=== PATIENT | female | born 1960 ===

== ENCOUNTER 2018-05-02 10:36 | Outpatient (CLI) | payer BC ==
--- NOTE | 2018-05-02 15:53 | NM ---
NUCLEAR MEDICINE HEPATOBILIARY SCAN: 05/02/18 HISTORY: 57-year-old female with history of epigastric pain. Patient was injected with 5 millicuries technetium 99m Mebrofenin intravenously. There is prompt upta ke of the tracer by the liver with excretion into the biliary tree and gallbladder and emptying into the duodenum. At the one hour time interval, the patient was given 8 oz of Ensure. Gallbladder ejecti on fraction equals 44% which is within normal limits. IMPRESSION: Unremarkable nuclear medicine hepatobiliary scan and ejection fraction. POS: [facility]
== END 2018-05-02 10:37 | disposition home or self-care (01) ==
LOC: NM 10:36
PROVIDERS: ATTEND Internal Medicine Gastroenterology
DX: R10.13 Epigastric pain (principal)
CPT/HCPCS: 78227; A9537

== ENCOUNTER 2020-01-17 12:26 | Outpatient (CLI) | payer BC ==
--- NOTE | 2020-01-17 15:17 | CT ---
EXAM: CT ABDOMEN AND PELVIS HISTORY: Right lower quadrant pain. COMPARISON: 11/01/2017 Procedure: Multiple contiguous axial images were obtained and a CT of the abdomen and pelvis with IV contrast. C oronal reformats were performed. FINDINGS: Lower Chest: within normal limits. Vessels: Normal caliber aorta. No periaortic fat stranding. Heart: Normal heart size. No significant pericardial fluid Abdomen: Portal vein:Patent Gallbladder: No calcified gallstones. Normal caliber wall. Liver: within normal limits. Pancreas: within normal limits. Spleen: within normal limits. Adrenals: within normal limits. Kidneys: Symmetric enhancement. No obstructive uropathy. Peritoneum: No ascites or free air, no fluid collection. Bowel: No evidence of bowel obstruction. Ileocecal junction is unremarkable. Normal caliber appendix. Scattered fecal material in a nondistended, nondilated colon. Minimal scattered diverticulosis of the sigmoid colon. No diverticulitis. Mesentery and Retroperitoneum: No enlarged mesenteric or retroperitoneal lymph nodes. Abdominal Wall: within normal limits. Pelvis: Reproductive Organs: Surgically absent uterus Pelvis: No mass, lymphadenopathy, free air or free fluid. Bladder: within normal limits. Bones: within normal limits. IMPRESSION: 1. No evidence of appendicitis 2. No acute abnormality in the abdomen or pelvis. 3. Results of study discussed with Dr. Martinez 01/17/2020 3:13 PM Code CR
== END 2020-01-17 12:27 | disposition home or self-care (01) ==
LOC: SCSCT 12:26
PROVIDERS: ATTEND Physician Assistant Medical
DX: R10.31 Right lower quadrant pain (principal)
CPT/HCPCS: 74177